=== PATIENT | male | born 1970 | race Caucasian/White ===

== ENCOUNTER 2020-04-30 11:28 | Emergency (ER) | payer OTHER ==
--- NOTE | 2020-04-30 12:00 | ERPHSYRPT ---
- History of Present Illness Time Seen by Provider: 04/30/20 11:40 Source: patient Exam Limitations: no limitations Physician History: Patient is a 49-year-old male presents to our ED with complaint of left shoulder pain. Patient states he was up on a ladder just prior to arrival and the ladder began to slip. Patient reached out to prevent the fall and subsequently injured his left shoulder. Pain described as an ache that is localized to the left posterior lateral aspect of his shoulder. Pain is constant. Pain worse with movement and palpation. Pain improved with rest. No other injuries reported. No associated weakness of the extremity. Pulses are palpable. Sensation intact. No neck pain. No head trauma. Patient did not fall. He was able to safely return back to the ground. Patient is otherwise healthy. Pain well controlled at this time. Patient declined pain medication. Patient otherwise generally healthy. Patient voices no other complaints at this time. Occurred: just prior to arrival Method of Injury: other (Patient having from age of his house supported by his left upper extremity.) Severity of Pain-Max: moderate Severity of Pain-Current: mild Extremities Pain Location: shoulder: left (Tenderness to palpation at left posterior lateral shoulder.) Modifying Factors: Improves With: movement Associated Symptoms: none, No chest discomfort, No chest pain, No dyspnea, No fever, No jaw pain, No nausea, No neck pain, No sweating, No short of breath, No vomiting Allergies/Adverse Reactions: No Known Drug Allergies Allergy (Unverified 04/30/20 11:48) Home Medications: Meloxicam 1 tab PO DAILY 04/30/20 [History] - Review of Systems Constitutional: No Symptoms, No Fever, No Chills Eyes: No Symptoms Ears, Nose, & Throat: No Symptoms Respiratory: No Symptoms, No Cough, No Dyspnea Cardiac: No Symptoms, No Chest Pain, No Edema, No Syncope Abdominal/Gastrointestinal: No Symptoms, No Abdominal Pain, No Nausea, No Vomiting, No Diarrhea Genitourinary Symptoms: No Symptoms, No Dysuria Musculoskeletal: Injury (Left shoulder tenderness to palpation. Overlying soft tissue intact.), No Back Pain, No Neck Pain Skin: No Symptoms, No Rash Neurological: No Symptoms, No Dizziness, No Focal Weakness, No Sensory Changes Psychological: No Symptoms Endocrine: No Symptoms All Other Systems: Reviewed and Negative - Nursing Vital Signs Nursing Vital Signs: Initial Vital Signs Temperature 98.4 F 04/30/20 11:33 Pulse Rate 80 04/30/20 11:33 Respiratory Rate 20 04/30/20 11:33 Blood Pressure 147/72 04/30/20 11:33 O2 Sat by Pulse Oximetry 95 04/30/20 11:33 Pain Scale Pain Intensity 8 - Physical Exam General Appearance: no apparent distress, alert Eyes, Ears, Nose, Throat Exam: moist mucous membranes Neck Exam: normal inspection, non-tender, supple Cardiovascular/Respiratory Exam: chest non-tender, normal breath sounds, regular rate/rhythm, no respiratory distress Abdominal Exam: non-tender, soft, No guarding Back Exam: normal inspection, No vertebral tenderness Shoulder Exam: normal inspection, No non-tender (Tenderness to palpation at left posterior lateral shoulder. No evidence of injury. Overlying soft tissue intact. No ecchymosis. No deformity. Range of motion limited by pain.) Elbow/Forearm Exam: normal inspection Wrist Exam: normal inspection Hand Exam: normal inspection, no evidence of injury Neuro/Tendon Exam: normal sensation, normal motor functions Mental Status Exam: alert, oriented x 3, cooperative Skin Exam: normal color, warm, dry SpO2 Interpretation: normal SpO2: 95 O2 Delivery: Room Air - Course Nursing assessment & vital signs reviewed: Yes - Radiology Exams Shoulder X-ray Interpretation: Teleradiologist Report (3 views left shoulder shows no bony no articular or soft tissue abnormalities.) Ordered Tests: Active Orders 24 hr Category Date Time Status Nursing [Miscellaneous Nursing Order] ROUTINE Care 04/30/20 12:01 Active SHOULDER Stat Exams 04/30/20 11:36 Completed - Progress Progress: improved Progress Note: 04/30/20 12:24 Patient reassessed. Symptoms improving shoulder sling. Patient declined pain medication. X-ray negative for acute pathology. Reassessment shows patient's left upper extremities neurovascular intact distally we will send patient to orthopedic clinic for further evaluation and treatment. Counseled pt/family regarding: diagnosis, need for follow-up, rad results - Departure Departure Disposition: Home Clinical Impression: Shoulder strain Condition: Stable Critical Care Time: No Referrals: JOSE M GREEN MD [NON-STAFF PHY W/O PRIVILEGES] - Additional Instructions: Discharge/Care Plan VANDANA JONES was seen on 04/30/20 in the Emergency Room. The patient was counseled regarding Diagnosis,Lab results, Imaging studies, need for follow up and when to return to the Emergency Room. Prescriptions given: Discharge Note I have spoken with the patient and/or caregivers. I have explained the patient' s condition, diagnosis and treatment plan based on the information available to me at this time. I have answered the patient's and/or caregiver's questions and addressed any concerns. The patient and/or caregivers have as good understanding of the patient's diagnosis, condition and treatment plan as can be expected at this point. The vital signs have been stable. The patient's condition is stable and appropriate for discharge from the emergency department. The patient will pursue further outpatient evaluation with the primary care physician or other designated or consulting physician as outlined in the discharge instructions. The patient and/or caregivers are agreeable to this plan of care and follow-up instructions have been explained in detail. The patient and/or caregivers have received these instruction. The patient/and or caregivers are aware that any significant change in condition or worsening of symptoms should prompt an immediate return to this or the closest emergency department or call 911. Outpatient Orders: Ortho Referral Time Frame: 1 Day, Location: ORTHO CLINIC
--- NOTE | 2020-04-30 12:22 | XRAY ---
Indication: Pain following fall. Comparison: None 3 view left shoulder obtained. No bony, articular, or soft tissue abnormalities.
[2020-04-30 12:31] VITALS: BP 127/73; PULSE 76; O2SAT 96
== END 2020-04-30 12:36 | disposition home or self-care (01) ==
LOC: ED 11:28
DX: S46.912A Strain of unspecified muscle, fascia and tendon at shoulder and upper arm level, left arm, initial encounter (principal); W01.10XA Fall on same level from slipping, tripping and stumbling with subsequent striking against unspecified object, initial encounter; Y93.89 Activity, other specified; Y92.89 Other specified places as the place of occurrence of the external cause
CPT/HCPCS: 73030; 99283

== ENCOUNTER 2020-07-22 20:32 | Observation (INO) | payer OTHER ==
[2020-07-22] MEDS ORDERED: Hydromorphone 1 mg/ml Ampule IV ONE (20:48)
[2020-07-22] MEDS ORDERED: Sodium Chloride 0.9% 1000 ML 1,000 ML IV STA (20:48)
[2020-07-22] MEDS ORDERED: Zofran 4 MG/2 ML VIAL IV ONE (20:48)
[2020-07-22] MEDS ORDERED: PROTONIX 40 MG IV IV ONE ×2 (20:48→21:09)
[2020-07-22] MEDS ORDERED: Sodium Chloride 0.9% 1000 ML 1,000 ML ONE (21:09)
[2020-07-22] MEDS ORDERED: Zofran 4 MG/2 ML VIAL ONE (21:09)
[2020-07-22 21:15] LABS: BASOPHIL % 0.2 % (0.0-0.4); Basophil (Absolute #) 0.01 (0-0.4); Eosinophil % 0.2 % (0.00-5.0); Eosinophil (Absolute #) 0.01 (0-0.5); Hematocrit 46.2 % (42-50); Hemoglobin 15.4 gm/dl (12.5-18.0); Lymphocytes % 29.8 % (24.0-44.0); Mean Cell Volume 88.8 fl (78-100); Mean Corpuscular Hemoglobin 29.6 pg (26-32); Mean Corpuscular Hgb Concent. 33.3 g/dl (32-36); Mean Platelet Volume 12.7 fl (7.5-11.0); Monocyte (Absolute #) 0.71 (0.0-1.3); Monocytes % 17.6 % (0.0-12.0); Neutrophil % 52.2 % (36.0-66.0); Platelet Count 108 K/mm3 (150-450); Red Cell Distribution Width 13.6 % (11.5-14.0)
[2020-07-22 21:22] LABS: ALKALINE PHOSPHATASE 83 U/L (38-126); AMYLASE 72 U/L (30-110); ANION GAP 9.5 MEQ/L (5-15); BLOOD UREA NITROGEN 16 mg/dL (9-20); CHLORIDE 104 mmol/L (98-107); Calcium 8.6 mg/dL (8.4-10.2); Carbon Dioxide 30 mmol/L (22-30); Creatinine 1 1.12 mg/dL (0.66-1.25); EST GLOMERULAR FILTRATION RATE > 60.0 ML/MIN; Glucose 109 mg/dL (74-106); LIPASE 80 U/L (23-300); Potassium 3.4 mmol/L (3.5-5.1); SGOT/AST 43 U/L (17-59); SGPT/ALT 31 U/L (0-50); SODIUM 140 mmol/L (137-145); Total Protein 7.1 g/dL (6.3-8.2)
[2020-07-22 21:35] LABS: Appearance SLIGHTLY CLOUDY (CLEAR); Bilirubin NEGATIVE (NEGATIVE); Blood NEGATIVE Ery/ul (0-5); Glucose NEGATIVE (NEGATIVE); Ketones NEGATIVE (NEGATIVE); Leukocyte Esterase NEGATIVE (NEGATIVE); Mucus MANY /HPF (NEGATIVE); Nitrite NEGATIVE (NEGATIVE); Protein,Urine Dip 100 (Negative); Specific Gravity 1.034 (1.005-1.025); Urobilinogen 2 mg/dL (0-1)
[2020-07-22] MEDS ORDERED: Hydromorphone 1 mg/ml Ampule ONE (22:03)
--- NOTE | 2020-07-22 22:52 | ERPHSYRPT ---
- History of Present Illness Time Seen by Provider: 07/22/20 20:45 Historian: patient Exam Limitations: no limitations Patient Subjective Stated Complaint: pt states he has been nauseated and having lt side abd pain radiated to chest and back for last 4-5 days. states he has been nauseated but no vomiting. unable to eat or drink d/t nausea. reports tenderness in lt upper quad starting today. Triage Nursing Assessment: pt alert and oriented, answers questions approp. pt ambulatory with steady gait noted. respirations nonlabored with lungs cta. respirations nonlabored with lungs cta. abd soft, bowel sounds present. pt reports tenderness with light palpation to lt upper quad. Physician History: Patient is a 49-year-old male who is been sick for approximately 5 days. His pain is in the epigastric and left upper quadrant radiates into the chest is worse with a deep breath is associated with nausea but he has not had vomiting. He cannot eat or drink. His pain is been fairly consistent for a few days getting worse. He has no cardiac risk factors. Timing/Duration: day(s) (5) Activities at Onset: none Quality: cramping, stabbing, throbbing Abdominal Pain Onset Location: LUQ, epigastric Pain Radiation: chest Severity of Pain-Max: moderate Severity of Pain-Current: moderate Modifying Factors: Improves With: nothing Associated Symptoms: chest pain, headache, nausea, shortness of breath Previous symptoms: no prior history Allergies/Adverse Reactions: No Known Drug Allergies Allergy (Verified 07/22/20 20:58) Home Medications: Meloxicam 1 tab PO DAILY 04/30/20 [History] Hx Tetanus, Diphtheria Vaccination/Date Given: Yes Hx Influenza Vaccination/Date Given: No Hx Pneumococcal Vaccination/Date Given: No Immunizations Up to Date: Yes Travel Risk - International Travel Have you traveled outside of the country in past 3 weeks: No - Coronavirus Screening Are you exhibiting any of the following symptoms?: No Close contact with a COVID-19 positive Pt in past 14-21 Days: No - Review of Systems Constitutional: No Fever, No Chills Eyes: No Symptoms Ears, Nose, & Throat: No Symptoms Respiratory: Dyspnea, No Cough Cardiac: Chest Pain, No Edema, No Syncope Abdominal/Gastrointestinal: Abdominal Pain, Nausea, No Vomiting, No Diarrhea Genitourinary Symptoms: No Dysuria Musculoskeletal: No Back Pain, No Neck Pain Skin: No Rash Neurological: No Dizziness, No Focal Weakness, No Sensory Changes Psychological: No Symptoms Endocrine: No Symptoms All Other Systems: Reviewed and Negative - Past Medical History Pertinent Past Medical History: No Neurological History: No Pertinent History ENT History: No Pertinent History Cardiac History: No Pertinent History Respiratory History: No Pertinent History Endocrine Medical History: No Pertinent History Musculoskeletal History: Arthritis GI Medical History: No Pertinent History History: No Pertinent History Psycho-Social History: No Pertinent History Male Reproductive Disorders: No Pertinent History - Past Surgical History Past Surgical History: Yes Neuro Surgical History: No Pertinent History Cardiac: No Pertinent History Respiratory: No Pertinent History Gastrointestinal: No Pertinent History Genitourinary: No Pertinent History Musculoskeletal: Orthopedic Surgery Male Surgical History: No Pertinent History Other Surgical History: Right knee meniscus repair - Social History Smoking Status: Never smoker Exposure to second hand smoke: No Drug Use: none Patient Lives Alone: No - Nursing Vital Signs Nursing Vital Signs: Initial Vital Signs Pulse Rate 95 H 07/22/20 20:44 Respiratory Rate 18 07/22/20 20:44 Blood Pressure 135/83 07/22/20 20:44 O2 Sat by Pulse Oximetry 97 07/22/20 20:44 Pain Scale Pain Intensity 4 - Physical Exam General Appearance: mild distress, alert Eye Exam: PERRL/EOMI, eyes nml inspection Ears, Nose, Throat Exam: normal ENT inspection, pharynx normal, moist mucous membranes Neck Exam: normal inspection, non-tender, supple, full range of motion Respiratory Exam: normal breath sounds, lungs clear, No respiratory distress Cardiovascular Exam: regular rate/rhythm, normal heart sounds Gastrointestinal/Abdomen Exam: soft, tenderness (Gastrium and left upper quadrant), No mass Back Exam: normal inspection, normal range of motion, No CVA tenderness, No vertebral tenderness Extremity Exam: normal inspection, normal range of motion, pelvis stable Neurologic Exam: alert, oriented x 3, cooperative, normal mood/affect, nml cerebellar function, sensation nml, No motor deficits Skin Exam: normal color, warm, dry SpO2: 94 - Course Nursing assessment & vital signs reviewed: Yes EKG Interpreted by Me: RATE (89), Sinus Rhythm, NORMAL AXIS, NORMAL INTERVALS, NORMAL QRS, NORMAL ST-T - Radiology Exams Chest X-ray Interpretation: Interpreted by me, Other (Chest x-ray is negative) - CT Exams Abdomen/Pelvis CT Interpretation: Other (CT scan shows multifocal patchy infiltrates in both lo wer lung ward) Ordered Tests: Active Orders 24 hr Category Date Time Status EKG-ER Only STAT Care 07/22/20 20:48 Active IV Insertion STAT Care 07/22/20 20:48 Active ABDOMEN AND PELVIS W CONTRAST [CT] Stat Exams 07/22/20 20:49 Taken CHEST 1 VIEW (PORTABLE) Stat Exams 07/22/20 20:49 Taken AMYLASE Stat Lab 07/22/20 20:55 Completed CBC W DIFF Stat Lab 07/22/20 20:55 Completed CMP Stat Lab 07/22/20 20:55 Completed LIPASE Stat Lab 07/22/20 20:55 Completed Lactic Acid Stat Lab 07/22/20 20:48 Completed TROPONIN Q3H Lab 07/22/20 20:55 Completed UA W/RFX UR CULTURE Stat Lab 07/22/20 21:10 Completed Medication Summary Discontinued Medications Generic Name Dose Route Start Last Admin Trade Name Freq PRN Reason Stop Dose Admin Hydromorphone HCl 1 mg 07/22/20 20:48 07/22/20 22:05 Hydromorphone 1 Mg/Ml Ampule IV 07/22/20 20:49 1 mg STAT ONE Administration Hydromorphone HCl Confirm 07/22/20 22:03 Hydromorphone 1 Mg/Ml Ampule Administered 07/22/20 22:04 Dose 1 mg .ROUTE .STK-MED ONE Sodium Chloride 1,000 mls @ 999 mls/hr 07/22/20 20:48 07/22/20 23:52 Sodium Chloride 0.9% 1000 Ml IV 07/22/20 21:48 Infused .Q1H1M STA Infusion Sodium Chloride Confirm 07/22/20 21:09 Sodium Chloride 0.9% 1000 Ml Administered 07/22/20 21:10 Dose 1,000 mls @ ud .ROUTE .STK-MED ONE Ondansetron HCl 4 mg 07/22/20 20:48 07/22/20 21:14 Zofran 4 Mg/2 Ml Vial IV 07/22/20 20:49 4 mg STAT ONE Administration Ondansetron HCl Confirm 07/22/20 21:09 Zofran 4 Mg/2 Ml Vial Administered 07/22/20 21:10 Dose 4 mg .ROUTE .STK-MED ONE Pantoprazole Sodium 40 mg 07/22/20 20:48 07/22/20 21:14 Protonix 40 Mg Iv IV 07/22/20 20:49 40 mg STAT ONE Administration Pantoprazole Sodium Confirm 07/22/20 21:09 Protonix 40 Mg Iv Administered 07/22/20 21:10 Dose 40 mg IV .STK-MED ONE Lab/Rad Data: Laboratory Result Diagrams 07/22/20 20:55 07/22/20 20:55 Laboratory Results 07/22/20 07/22/20 07/22/20 Range/Units 23:00 21:10 20:55 WBC (4.0-10.5) K/mm3 RBC (4.1-5.6) M/mm3 Hgb (12.5-18.0) gm/dl Hct (42-50) % MCV (78-100) fl MCH (26-32) pg MCHC (32-36) g/dl RDW (11.5-14.0) % Plt Count (150-450) K/mm3 MPV (7.5-11.0) fl Gran % (36.0-66.0) % Eos # (Auto) (0-0.5) Absolute Lymphs (auto) (1.0-4.6) Absolute Monos (auto) (0.0-1.3) Lymphocytes % (24.0-44.0) % Monocytes % (0.0-12.0) % Eosinophils % (0.00-5.0) % Basophils % (0.0-0.4) % Absolute Granulocytes (1.4-6.9) Basophils # (0-0.4) Sodium (137-145) mmol/L Potassium (3.5-5.1) mmol/L Chloride (98-107) mmol/L Carbon Dioxide (22-30) mmol/L Anion Gap (5-15) MEQ/L BUN (9-20) mg/dL Creatinine (0.66-1.25) mg/dL Estimated GFR ML/MIN Glucose (74-106) mg/dL Lactic Acid (0.4-2.0) Calcium (8.4-10.2) mg/dL Total Bilirubin (0.2-1.3) mg/dL AST (17-59) U/L ALT (0-50) U/L Alkaline Phosphatase (38-126) U/L Troponin I < 0.012 (0.000-0.034) ng/mL Serum Total Protein (6.3-8.2) g/dL Albumin (3.5-5.0) g/dL Amylase (30-110) U/L Lipase (23-300) U/L Urine Color LIBIA (YELLOW) Urine Appearance SLIGHTLY CLOUDY (CLEAR) Urine pH 5.0 (5-6) Ur Specific [place] 1.034 (1.005-1.025) Urine Protein 100 (Negative) Urine Ketones NEGATIVE (NEGATIVE) Urine Blood NEGATIVE (0-5) Mike/ul Urine Nitrite NEGATIVE (NEGATIVE) Urine Bilirubin NEGATIVE (NEGATIVE) Urine Urobilinogen 2 (0-1) mg/dL Ur Leukocyte Esterase NEGATIVE (NEGATIVE) Urine WBC (Auto) NONE (0-5) /HPF Urine RBC (Auto) NONE (0-2) /HPF U Epithel Cells (Auto) NONE (FEW) /HPF Urine Bacteria (Auto) NONE (NEGATIVE) /HPF Urine Mucus (Auto) MANY (NEGATIVE) /HPF Urine Culture Reflexed NO (NO) Urine Glucose NEGATIVE (NEGATIVE) mg/dL SARS-CoV-2 (PCR) POSITIVE A (NEGATIVE) 07/22/20 07/22/20 07/22/20 Range/Units 20:55 20:55 20:48 WBC 4.0 (4.0-10.5) K/mm3 RBC 5.20 (4.1-5.6) M/mm3 Hgb 15.4 (12.5-18.0) gm/dl Hct 46.2 (42-50) % MCV 88.8 (78-100) fl MCH 29.6 (26-32) pg MCHC 33.3 (32-36) g/dl RDW 13.6 (11.5-14.0) % Plt Count 108 L (150-450) K/mm3 MPV 12.7 H (7.5-11.0) fl Gran % 52.2 (36.0-66.0) % Eos # (Auto) 0.01 (0-0.5) Absolute Lymphs (auto) 1.20 (1.0-4.6) Absolute Monos (auto) 0.71 (0.0-1.3) Lymphocytes % 29.8 (24.0-44.0) % Monocytes % 17.6 H (0.0-12.0) % Eosinophils % 0.2 (0.00-5.0) % Basophils % 0.2 (0.0-0.4) % Absolute Granulocytes 2.10 (1.4-6.9) Basophils # 0.01 (0-0.4) Sodium 140 (137-145) mmol/L Potassium 3.4 L (3.5-5.1) mmol/L Chloride 104 (98-107) mmol/L Carbon Dioxide 30 (22-30) mmol/L Anion Gap 9.5 (5-15) MEQ/L BUN 16 (9-20) mg/dL Creatinine 1.12 (0.66-1.25) mg/dL Estimated GFR > 60.0 ML/MIN Glucose 109 H (74-106) mg/dL Lactic Acid 1.2 (0.4-2.0) Calcium 8.6 (8.4-10.2) mg/dL Total Bilirubin 0.50 (0.2-1.3) mg/dL AST 43 (17-59) U/L ALT 31 (0-50) U/L Alkaline Phosphatase 83 (38-126) U/L Troponin I (0.000-0.034) ng/mL Serum Total Protein 7.1 (6.3-8.2) g/dL Albumin 4.0 (3.5-5.0) g/dL Amylase 72 (30-110) U/L Lipase 80 (23-300) U/L Urine Color (YELLOW) Urine Appearance (CLEAR) Urine pH (5-6) Ur Specific [place] (1.005-1.025) Urine Protein (Negative) Urine Ketones (NEGATIVE) Urine Blood (0-5) Mike/ul Urine Nitrite (NEGATIVE) Urine Bilirubin (NEGATIVE) Urine Urobilinogen (0-1) mg/dL Ur Leukocyte Esterase (NEGATIVE) Urine WBC (Auto) (0-5) /HPF Urine RBC (Auto) (0-2) /HPF U Epithel Cells (Auto) (FEW) /HPF Urine Bacteria (Auto) (NEGATIVE) /HPF Urine Mucus (Auto) (NEGATIVE) /HPF Urine Culture Reflexed (NO) Urine Glucose (NEGATIVE) mg/dL SARS-CoV-2 (PCR) (NEGATIVE) - Progress Progress: unchanged Discussed with : Other (Marvin) Will see patient in: hospital (full admit) - Departure Departure Disposition: In-patient Admission Clinical Impression: COVID-19 Condition: Fair Critical Care Time: No Referrals: HOSPITAL,'S [Primary Care Provider] -
[2020-07-23] MEDS ORDERED: Sodium Chloride 0.9% 1000 ML 1,000 ML IV SCH (00:15)
[2020-07-23] MEDS: TYLENOL 325 MG PO PRN ×2 (02:31→08:37)
[2020-07-23 05:39] LABS: Absolute Neutrophil Ct (ANC) 2.01 (1.4-6.9); BASOPHIL % 0.2 % (0.0-0.4); Basophil (Absolute #) 0.01 (0-0.4); Eosinophil % 0.2 % (0.00-5.0); Eosinophil (Absolute #) 0.01 (0-0.5); Hematocrit 41.4 % (42-50); Hemoglobin 13.7 gm/dl (12.5-18.0); Lymphocyte (Absolute #) 1.34 (1.0-4.6); Lymphocytes % 32.1 % (24.0-44.0); Mean Cell Volume 90.8 fl (78-100); Mean Corpuscular Hgb Concent. 33.1 g/dl (32-36); Monocytes % 19.2 % (0.0-12.0); Neutrophil % 48.3 % (36.0-66.0); Platelet Count 93 K/mm3 (150-450); Red Blood Count 4.56 M/mm3 (4.1-5.6); Red Cell Distribution Width 13.7 % (11.5-14.0); White Blood Count 4.2 K/mm3 (4.0-10.5)
[2020-07-23 06:02] LABS: ALBUMIN 3.4 g/dL (3.5-5.0); ALKALINE PHOSPHATASE 69 U/L (38-126); ANION GAP 7.6 MEQ/L (5-15); BLOOD UREA NITROGEN 14 mg/dL (9-20); CHLORIDE 106 mmol/L (98-107); Calcium 7.7 mg/dL (8.4-10.2); Carbon Dioxide 28 mmol/L (22-30); Creatinine 1 0.92 mg/dL (0.66-1.25); EST GLOMERULAR FILTRATION RATE > 60.0 ML/MIN; Glucose 102 mg/dL (74-106); NT PRO BNP 29.8 pg/mL (0-900); Potassium 3.7 mmol/L (3.5-5.1); SGOT/AST 39 U/L (17-59); SGPT/ALT 26 U/L (0-50); SODIUM 138 mmol/L (137-145); Total Protein 6.1 g/dL (6.3-8.2)
[2020-07-23 07:44] VITALS: BP 124/74; PULSE 73; O2SAT 95
--- NOTE | 2020-07-23 08:48 | XRAY ---
Indication: Upper abdomen pain and nausea. Multiple contiguous axial images obtained through the abdomen and pelvis using 80 cc Isovue 370 contrast only. Comparison: None Lung bases demonstrates small patchy bilateral peripheral airspace opacities. Also mild bibasilar subsegmental atelectasis/scarring and 7 mm subpleural left posterior gutter noncalcified nodule. No effusion. Tiny right perihilar and right lower lobe calcified granulomas. Heart is not enlarged. Noncontrasted stomach and bowel loops appear nonobstructed. Normal appendix. Mild scattered descending and sigmoid diverticulosis. No free fluid/air. Nonobstructing punctate left renal calculus. Remaining liver, gallbladder, pancreas, spleen, adrenal glands, kidneys, ureters, bladder, and aorta appear unremarkable. No pathologic retroperitoneal lymphadenopathy. Osseous structures intact with mild degenerative changes throughout the thoracolumbar spine. No ventral or inguinal hernias. Impression: 1. Bilateral lower lung patchy airspace disease without effusion. 2. 7 mm left lower lobe noncalcified nodule probably granulomatous as there is evidence for old granulomatous disease elsewhere. CT chest recommended to establish baseline with follow-up per Fleischner guidelines. 3. Nonobstructing right renal micro-calculus and colonic diverticulosis. Comment: Preliminary interpretation was made by [facility]. No critical discrepancy.
--- NOTE | 2020-07-23 08:50 | XRAY ---
Indication: Chest pain. Comparison: None Portable apical lordotic chest demonstrates left mid to lower lung airspace disease without consolidation/large effusion. Remaining heart, lungs, and bony thorax unremarkable.
--- NOTE | 2020-07-23 13:52 | SSS ---
DISCHARGE DIAGNOSES: 1) COVID. 2) GASTRITIS. 3) COVID PNEUMONIA. CHIEF COMPLAINT: Abdominal pain. HISTORY OF PRESENT ILLNESS: The patient is a 49 year old white male who has been doing well until yesterday when he started having diffuse abdominal pain while eating. He has had no fever, chills or cough. He has not been in contact with anybody with COVID. The back pain has been going now for day five. No vomiting. Not able to eat or drink though. He works at [employer] with his brother who is working with him. He has some kids at home. His [id number] I believe has been treated for cancer. PAST SURGICAL HISTORY: Orthopedic history with torn right meniscus. REVIEW OF SYSTEMS: HEENT: No problems hearing or seeing. He does not wear glasses. CHEST: No shortness of breath. No cough. CVS: Sharp stabbing pain in his chest. ABDOMEN: Sharp stabbing pain epigastric left upper quadrant. One diarrheal movement. Pain does not change no matter whether he moves or takes deep breath. : None. PSYCH: None. SOCIAL HISTORY: Nonsmoker. 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 No drug use. He lives with his and two children. PHYSICAL EXAMINATION: The patient is a large, younger than normal 49 year old white male who is not obese. Pulse 95, blood pressure 135/83. O2 saturation on oxygen 97%. HEENT: Pupils equal and reactive to light. NECK: Supple without adenopathy. CHEST: Clear. CVS: No murmurs or gallops. ABDOMEN: Kind of tender at the left upper quadrant. IMPRESSION: The patient has positive COVID test. Electrolytes, CBC all okay. He was a little bit dehydrated and having pain. He was treated with some IV fluids overnight and some Zofran and he feels better this morning. He is drinking fluids without problem. At this point he will be discharged home with some Zofran 2 mg q4h PRN and some Decadron 4 mg twice a day. He is to be in isolation for 14 days. He is to call if he runs high fever or gets short of breath, has intractable vomiting or diarrhea. I noticed D-dimer was 784 just minimally elevated which is normal with this disease. His chest x-ray did show bilateral lower lung patchy infiltrates without effusion. I feel the Decadron will help take care of that. He is really not having any cough or shortness of breath. The patient is stable on discharge to follow up with isolation for total of 14 days. PROGNOSIS: Good.
== END 2020-07-23 10:22 | disposition home or self-care (01) ==
LOC: ED 20:32 → INTOOBSV 07-23 01:45 → MED SURG 07-23 01:45
PROVIDERS: ADMIT Family Medicine; ATTEND Family Medicine
DX: U07.1 COVID-19 (principal); J12.89 Other viral pneumonia; E86.0 Dehydration; K29.70 Gastritis, unspecified, without bleeding
CPT/HCPCS: 36000; 36415; 71045; 74177; 80053; 81001; 82150; 83605; 83690; 83880; 84484; 85025; 85379; 93005; 94762; 96360; 96361; 96374; 96375; U0003; 99284; G0378; J1170; J2405; A9270-GY

== ENCOUNTER 2023-02-09 15:46 | Emergency (ER) | payer OTHER ==
--- NOTE | 2023-02-09 16:35 | XRAY ---
Indication: Periumbilical pain/bulge. Multiple contiguous axial images obtained through the abdomen and pelvis without contrast. Comparison: July 22, 2020 Lung bases again demonstrates mild bibasilar dependent atelectasis and stable 7 mm benign subpleural left posterior gutter noncalcified nodule. Heart not enlarged. Again no ventral or inguinal hernias. Noncontrasted stomach and bowel loops remain nonobstructed with normal appendix. Again mild descending and sigmoid diverticulosis. Query mild/early diverticulitis junction descending and sigmoid colon without free fluid/air. Stable nonobstructing left and new nonobstructing right renal punctate calculus. Remaining liver, gallbladder, pancreas, spleen, adrenal glands, kidneys, ureters, bladder, and aorta are unremarkable for noncontrast exam. Osseous structures intact again with mild degenerative changes throughout the thoracal lumbar spine. Impression: 1. Again left hemicolon diverticulosis. Query mild/early diverticulitis junction of descending and sigmoid colon. 2. Incidental nonobstructing bilateral renal punctate calculus and stable subcentimeter benign left lower lobe noncalcified nodule.
[2023-02-09 16:56] VITALS: O2SAT 97
[2023-02-09] MEDS ORDERED: PIPERACILLIN/TAZOBACTAM 3.375 GM in Sodium Chloride 100ML MINI-BAG PLUS 100 ML IV ONE (17:00)
[2023-02-09] MEDS ORDERED: PIPERACILLIN/TAZOBACTAM IV ONE (17:01)
[2023-02-09] MEDS ORDERED: Sodium Chloride 100ML MINI-BAG PLUS 100 ML IV ONE (17:02)
--- NOTE | 2023-02-09 17:18 | ERPHSYRPT ---
- History of Present Illness Time Seen by Provider: 02/09/23 16:00 Historian: patient Exam Limitations: no limitations Patient Subjective Stated Complaint: pt states I have a hernia that is causing burning Triage Nursing Assessment: pt ambulated into the er; pt is axo x4; c/o abd pain; skin PDW; no respiratory distress present; denies N/V/D; vital wnl Physician History: Patient is a 52-year-old male presents to our ED for evaluation of abdominal pain. Patient complains of a burning sensation in his abdomen. Patient states he has a history of a hernia. Patient concerned that the pain may be caused by the hernia repair no trauma. No fever. No nausea or vomiting. No diarrhea. No rash. No constipation. Symptoms are mild to moderate in intensity. Patient declined pain medication. Patient voices no other complaints or concerns at this time. Portions of this note were created with voice recognition technology. There may be grammatical, spelling, punctuation or sound alike errors Timing/Duration: today Activities at Onset: none Quality: aching Abdominal Pain Onset Location: other (Anterior abdomen) Pain Radiation: no radiation Severity of Pain-Max: moderate Severity of Pain-Current: mild Modifying Factors: Improves With: nothing Associated Symptoms: denies symptoms Previous symptoms: same symptoms as today Allergies/Adverse Reactions: No Known Drug Allergies Allergy (Verified 02/09/23 15:54) Hx Tetanus, Diphtheria Vaccination/Date Given: Yes Hx Influenza Vaccination/Date Given: Yes Hx Pneumococcal Vaccination/Date Given: No Travel Risk - International Travel Have you traveled outside of the country in past 3 weeks: No - Coronavirus Screening Are you exhibiting any of the following symptoms?: No Close contact with a COVID-19 positive Pt in past 14-21 Days: No - Vaccine Status Have you recieved a Covid-19 vaccination: No - Review of Systems Constitutional: No Symptoms, No Fever, No Chills Eyes: No Symptoms Ears, Nose, & Throat: No Symptoms Respiratory: No Symptoms, No Cough, No Dyspnea Cardiac: No Symptoms, No Chest Pain, No Edema, No Syncope Abdominal/Gastrointestinal: No Symptoms, No Abdominal Pain, No Nausea, No Vomiting, No Diarrhea Genitourinary Symptoms: No Symptoms, No Dysuria Musculoskeletal: No Symptoms, No Back Pain, No Neck Pain Skin: No Symptoms, No Rash Neurological: No Symptoms, No Dizziness, No Focal Weakness, No Sensory Changes Psychological: No Symptoms Endocrine: No Symptoms Hematologic/Lymphatic: No Symptoms Immunological/Allergic: No Symptoms All Other Systems: Reviewed and Negative - Past Medical History Pertinent Past Medical History: No Neurological History: No Pertinent History ENT History: No Pertinent History Cardiac History: No Pertinent History Respiratory History: No Pertinent History Endocrine Medical History: No Pertinent History Musculoskeletal History: Arthritis GI Medical History: No Pertinent History History: No Pertinent History Psycho-Social History: No Pertinent History Male Reproductive Disorders: No Pertinent History - Past Surgical History Past Surgical History: Yes Neuro Surgical History: No Pertinent History Cardiac: No Pertinent History Respiratory: No Pertinent History Gastrointestinal: No Pertinent History Genitourinary: No Pertinent History Musculoskeletal: Orthopedic Surgery Male Surgical History: No Pertinent History Other Surgical History: Right knee meniscus repair and left knee - Social History Smoking Status: Never smoker Exposure to second hand smoke: No Drug Use: none Patient Lives Alone: No - Nursing Vital Signs Nursing Vital Signs: Initial Vital Signs Temperature 97.4 F 02/09/23 15:55 Pulse Rate 81 02/09/23 15:55 Respiratory Rate 18 02/09/23 15:55 Blood Pressure 148/78 02/09/23 15:55 O2 Sat by Pulse Oximetry 99 02/09/23 15:55 Pain Scale Pain Intensity 2 - Physical Exam General Appearance: no apparent distress, alert Eye Exam: PERRL/EOMI, eyes nml inspection Ears, Nose, Throat Exam: normal ENT inspection, pharynx normal, moist mucous membranes Neck Exam: normal inspection, non-tender, supple, full range of motion Respiratory Exam: normal breath sounds, lungs clear, airway intact, No respiratory distress Cardiovascular Exam: regular rate/rhythm, normal heart sounds Gastrointestinal/Abdomen Exam: soft, No tenderness, No mass Back Exam: normal inspection, normal range of motion, No CVA tenderness, No vertebral tenderness Extremity Exam: normal inspection, normal range of motion, pelvis stable Neurologic Exam: alert, oriented x 3, cooperative, normal mood/affect, nml cerebellar function, sensation nml, No motor deficits Skin Exam: normal color, warm, dry Lymphatic Exam: No adenopathy SpO2 Interpretation: normal SpO2: 97 O2 Delivery: Room Air - Course Nursing assessment & vital signs reviewed: Yes - CT Exams Abdomen/Pelvis CT Interpretation: Tele-radiologist Report (Diverticulosis, diverticulitis, nephrolithiasis, lung nodule) Ordered Tests: Active Orders 24 hr Category Date Time Status ABDOMEN AND PELVIS W/0 CONTRAS [CT] Stat Exams 02/09/23 16:05 Completed Medication Summary Generic Name Dose Route Start Last Admin Trade Name Freq PRN Reason Stop Dose Admin Piperacillin Sod/Tazobactam 100 mls @ 200 mls/hr 02/09/23 17:00 02/09/23 17:03 Sod 3.375 gm/ Sodium Chloride IV 02/09/23 17:29 200 mls/hr STAT ONE Administration Discontinued Medications Generic Name Dose Route Start Last Admin Trade Name Freq PRN Reason Stop Dose Admin Sodium Chloride Confirm 02/09/23 17:02 Sodium Chloride 100ml Mini-Bag Plus Administered 02/09/23 17:03 Dose 100 mls @ ud IV .STK-MED ONE Piperacillin Sod/Tazobactam Sod Confirm 02/09/23 17:01 Piperacillin/Tazobactam Sodium 3.375 Gm Vial Administered 02/09/23 17:02 Dose 3.375 gm IV .STK-MED ONE - Progress Progress: improved Progress Note: Patient is a 52-year-old male presents to our ED with abdominal pain. CT scan reveals early mild diverticulitis. Patient declined pain medication. Complexity of problem addressed is low. Problem is acute uncomplicated. No critical care time. Complexity of data reviewed and analyzed was low. Test ordered. Test reviewed. Patient served as independent historian. No outside documents reviewed. Risk of complication and or morbidity/mortality of patient management is moderate. Patient received IV antibiotics. A prescription for Augmentin was forwarded to patient's pharmacy. She will be discharged home. He agrees to follow-up with primary care doctor within 48 hours for reevaluation. Time spent on discharge is approximately 10 minutes. Vital stable. Portions of this note were created with voice recognition technology. There may be grammatical, spelling, punctuation or sound alike errors 02/09/23 17:32 Counseled pt/family regarding: diagnosis, need for follow-up, rad results - Departure Departure Disposition: Home Clinical Impression: Diverticulitis, Nephrolithiasis, Lung nodule Condition: Stable Critical Care Time: No Referrals: DOCTOR,NO FAMILY [Primary Care Provider] - Follow up/PCP as directed RAFAEL CARDONA [ACTIVE STAFF] - Follow up/PCP as directed Instructions: High Fiber Diet, Diverticulitis Additional Instructions: Discharge/Care Plan VANDANA JONES was seen on 02/09/23 in the Emergency Room. The patient was counseled regarding Diagnosis,Lab results, Imaging studies, need for follow up and when to return to the Emergency Room. Prescriptions given: Discharge Note I have spoken with the patient and/or caregivers. I have explained the patient's condition, diagnosis and treatment plan based on the information available to me at this time. I have answered the patient's and/or caregiver's questions and addressed any concerns. The patient and/or caregivers have as good understanding of the patient's diagnosis, condition and treatment plan as can be expected at this point. The vital signs have been stable. The patient's condition is stable and appropriate for discharge from the emergency department. The patient will pursue further outpatient evaluation with the primary care physician or other designated or consulting physician as outlined in the discharge instructions. The patient and/or caregivers are agreeable to this plan of care and follow-up instructions have been explained in detail. The patient and/or caregivers have received these instruction. The patient/and or caregivers are aware that any significant change in condition or worsening of symptoms should prompt an immediate return to this or the closest emergency department or call 911. Prescriptions: Amox Tr/Potass Clav. 875 mg [Augmentin 875-125 Tablet] 875 mg PO BID 7 Days #14 tablet
[2023-02-09 17:20] VITALS: BP 125/74; PULSE 55
== END 2023-02-09 17:47 | disposition home or self-care (01) ==
LOC: ED 15:46
DX: K57.92 Diverticulitis of intestine, part unspecified, without perforation or abscess without bleeding (principal); N20.0 Calculus of kidney; R91.1 Solitary pulmonary nodule; R10.9 Unspecified abdominal pain; Z28.310 Unvaccinated for COVID-19
CPT/HCPCS: 74176; 96374; 99283

== ENCOUNTER 2023-02-19 15:38 | Emergency (ER) | payer OTHER ==
--- NOTE | 2023-02-19 15:47 | ERPHSYRPT ---
- History of Present Illness Time Seen by Provider: 02/19/23 15:47 Source: patient, sign language interpreter Exam Limitations: no limitations Physician History: This is a 52-year-old white male patient who presents to the emergency department today with right flank pain that radiates down to his right lower abdomen. Patient receives his primary care through the [facility] system. Patient was seen in our emergency department approximately 9 days ago because of abdominal pain and he was diagnosed with nephrolithiasis and there was an incidental finding of diverticulitis. He has been on Augmentin and he still has some medication left to take. Patient states that he has right flank pain and pain that radiates into the right lower abdomen has worsened this morning. Patient has not fallen or had any trauma to his back. He does have a history of chronic low back pain. Patient denies fever. Patient denies chills. He has not had a cough. He denies chest pain. He denies nausea vomiting and diarrhea Timing/Duration: week(s), worse (This morning) Quality: aching, throbbing Back Pain Location: paraspinous muscles (Right flank area) Severity of Pain-Max: moderate Severity of Pain-Current: moderate Associated Symptoms: other (Right flank pain with radiation to the right lower abdomen), No urinary incontinence, No loss of bowel control, No nausea, No vomiting, No problems urinating, No light-headedness, No dizziness, No numbness in legs/feet Previous symptoms: same symptoms as today, recently seen, recently treated Allergies/Adverse Reactions: No Known Drug Allergies Allergy (Verified 02/19/23 15:53) Hx Tetanus, Diphtheria Vaccination/Date Given: Yes Hx Influenza Vaccination/Date Given: Yes Hx Pneumococcal Vaccination/Date Given: No Travel Risk - International Travel Have you traveled outside of the country in past 3 weeks: No - Coronavirus Screening Are you exhibiting any of the following symptoms?: No Close contact with a COVID-19 positive Pt in past 14-21 Days: No - Vaccine Status Have you recieved a Covid-19 vaccination: No - Review of Systems Constitutional: No Symptoms Eyes: No Symptoms Ears, Nose, & Throat: No Symptoms Respiratory: No Symptoms Cardiac: No Symptoms Abdominal/Gastrointestinal: Abdominal Pain (Right lower abdominal pain) Genitourinary Symptoms: Flank Pain (Right) Musculoskeletal: No Symptoms Skin: No Symptoms Neurological: No Symptoms Psychological: No Symptoms Endocrine: No Symptoms Hematologic/Lymphatic: No Symptoms Immunological/Allergic: No Symptoms All Other Systems: Reviewed and Negative - Past Medical History Pertinent Past Medical History: No Neurological History: No Pertinent History ENT History: No Pertinent History Cardiac History: No Pertinent History Respiratory History: No Pertinent History Endocrine Medical History: No Pertinent History Musculoskeletal History: Arthritis GI Medical History: No Pertinent History History: No Pertinent History Psycho-Social History: No Pertinent History Male Reproductive Disorders: No Pertinent History - Past Surgical History Past Surgical History: Yes Neuro Surgical History: No Pertinent History Cardiac: No Pertinent History Respiratory: No Pertinent History Gastrointestinal: No Pertinent History Genitourinary: No Pertinent History Musculoskeletal: Orthopedic Surgery Male Surgical History: No Pertinent History Other Surgical History: Right knee meniscus repair and left knee - Social History Smoking Status: Never smoker Exposure to second hand smoke: No Drug Use: none Patient Lives Alone: No - Nursing Vital Signs Nursing Vital Signs: Initial Vital Signs Temperature 98.5 F 02/19/23 15:54 Pulse Rate 84 02/19/23 15:54 Respiratory Rate 18 02/19/23 15:54 Blood Pressure 134/74 02/19/23 15:54 O2 Sat by Pulse Oximetry 96 02/19/23 15:54 Pain Scale Pain Intensity 4 - Physical Exam General Appearance: no apparent distress, alert, anxiety Eye Exam: PERRL/EOMI, eyes nml inspection Ears, Nose, Throat Exam: normal ENT inspection, moist mucous membranes Neck Exam: normal inspection, non-tender, supple, full range of motion Respiratory Exam: normal breath sounds, lungs clear, No chest tenderness, No respiratory distress, No airway intact Cardiovascular Exam: regular rate/rhythm, normal heart sounds, normal peripheral pulses Gastrointestinal Exam: soft, normal bowel sounds, tenderness (Mild right lower abdominal tenderness to palpation), guarding (Right lower abdomen to palpation), No rebound Rectal Exam: not done Back Exam: normal inspection, normal range of motion, CVA tenderness (Right), No vertebral tenderness Extremity Exam: normal inspection, normal range of motion, pelvis stable Neurologic Exam: alert, oriented x 3, cooperative, senior nurse manager II-XII nml as tested, normal mood/affect, nml cerebellar function, nml station & gait, sensation nml Skin Exam: normal color, warm, dry Lymphatic Exam: No adenopathy SpO2 Interpretation: normal O2 Delivery: Room Air - Course Nursing assessment & vital signs reviewed: Yes Ordered Tests: Active Orders 24 hr Category Date Time Status ABDOMEN AND PELVIS W/0 CONTRAS [CT] Stat Exams 02/19/23 16:03 Completed AMYLASE Stat Lab 02/19/23 16:05 Completed CBC W DIFF Stat Lab 02/19/23 16:05 Completed CMP Stat Lab 02/19/23 16:05 Completed LIPASE Stat Lab 02/19/23 16:05 Completed UA W/RFX UR CULTURE Stat Lab 02/19/23 16:05 Completed Medication Summary Discontinued Medications Generic Name Dose Route Start Last Admin Trade Name Freq PRN Reason Stop Dose Admin Hydromorphone HCl 1 mg 02/19/23 16:03 02/19/23 16:11 Hydromorphone 1 Mg/1ml Inj 1 Mg/Ml Syringe IV 02/19/23 16:04 1 mg STAT ONE Administration Hydromorphone HCl Confirm 02/19/23 16:09 Hydromorphone 1 Mg/1ml Inj 1 Mg/Ml Syringe Administered 02/19/23 16:10 Dose 1 mg .ROUTE .STK-MED ONE Sodium Chloride 1,000 mls @ 999 mls/hr 02/19/23 16:03 02/19/23 16:10 Sodium Chloride 0.9% 1000 Ml IV 02/19/23 17:03 999 mls/hr .Q1H1M STA Administration Sodium Chloride Confirm 02/19/23 16:09 Sodium Chloride 0.9% 1000 Ml Administered 02/19/23 16:10 Dose 1,000 mls @ ud .ROUTE .STK-MED ONE Ketorolac Tromethamine 30 mg 02/19/23 16:03 02/19/23 16:10 Ketorolac Tromethamine 30 Mg/Ml Inj IV 02/19/23 16:04 30 mg STAT ONE Administration Ketorolac Tromethamine Confirm 02/19/23 16:08 Ketorolac Tromethamine 30 Mg/Ml Inj Administered 02/19/23 16:09 Dose 30 mg .ROUTE .STK-MED ONE Ondansetron HCl 4 mg 02/19/23 16:03 02/19/23 16:10 Ondansetron Hcl 4 Mg/2 Ml Vial IV 02/19/23 16:04 4 mg STAT ONE Administration Ondansetron HCl Confirm 02/19/23 16:08 Ondansetron Hcl 4 Mg/2 Ml Vial Administered 02/19/23 16:09 Dose 4 mg .ROUTE .K-MED ONE Lab/Rad Data: Laboratory Result Diagrams 02/19/23 16:05 02/19/23 16:05 Laboratory Results 02/19/23 02/19/23 02/19/23 Range/Units 16:05 16:05 16:05 WBC 8.4 (4.0-10.5) x10^3/uL RBC 4.99 (4.1-5.6) x10^6/uL Hgb 15.0 (12.5-18.0) g/dL Hct 44.3 (42-50) % MCV 88.8 (78-100) fL MCH 30.1 (26-32) pg MCHC 33.9 (32-36) g/dL RDW 13.0 (11.5-14.0) % Plt Count 187 (150-450) x10^3/uL MPV 11.5 H (7.5-11.0) fL Gran % 75.9 H (36.0-66.0) % Immature Gran % (Auto) 0.4 (0.00-0.4) % Nucleat RBC Rel Count 0.0 (0.00-0.1) % Eos # (Auto) 0.02 (0-0.5) x10^3/uL Immature Gran # (Auto) 0.03 (0.00-0.03) x10^3u/L Absolute Lymphs (auto) 1.35 (1.0-4.6) x10^3/uL Absolute Monos (auto) 0.59 (0.0-1.3) x10^3/uL Absolute Nucleated RBC 0.00 (0.00-0.01) x10^3u/L Lymphocytes % 16.1 L (24.0-44.0) % Monocytes % 7.0 (0.0-12.0) % Eosinophils % 0.2 (0.00-5.0) % Basophils % 0.4 (0.0-0.4) % Absolute Granulocytes 6.38 (1.4-6.9) x10^3/uL Basophils # 0.03 (0-0.4) x10^3/uL Sodium 142 (137-145) mmol/L Potassium 4.0 (3.5-5.1) mmol/L Chloride 106 (98-107) mmol/L Carbon Dioxide 26 (22-30) mmol/L Anion Gap 13.2 (5-15) MEQ/L BUN 16 (9-20) mg/dL Creatinine 0.91 (0.66-1.25) mg/dL Estimated GFR > 60.0 ML/MIN Glucose 116 H (74-106) mg/dL Calcium 8.2 L (8.4-10.2) mg/dL Total Bilirubin 0.40 (0.2-1.3) mg/dL AST 35 (17-59) U/L ALT 31 (0-50) U/L Alkaline Phosphatase 79 (38-126) U/L Serum Total Protein 7.2 (6.3-8.2) g/dL Albumin 4.1 (3.5-5.0) g/dL Amylase 76 (30-110) U/L Lipase 63 (23-300) U/L Urine Color Yellow (Yellow) Urine Appearance Clear (Clear) Urine pH 7.5 (4.6-8.0) Ur Specific [place] 1.020 (1.005-1.030) Urine Protein Trace A (Negative) Urine Glucose (UA) Negative (Negative) mg/dL Urine Ketones Negative (Negative) Urine Blood Negative (Negative) Urine Nitrite Negative (Negative) Urine Bilirubin Negative (Negative) Urine Urobilinogen 0.2 (0.2) mg/dL Ur Leukocyte Esterase Negative (Negative) U Hyaline Cast (Auto) NONE SEEN (0-2) /LPF Urine Microscopic RBC 0-2 (0-5) /HPF Urine Microscopic WBC 0-2 (0-5) /HPF Ur Epithelial Cells None Seen (None Seen) /HPF Urine Bacteria None Seen (None Seen) /HPF Urine Culture Reflexed NO (NO) - Progress Progress: improved, pain not gone completely Progress Note: 02/19/23 17:11 CAT scan of the abdomen pelvis without contrast shows no new acute findings on today's study. There are no changes when compared to the CT scan of the abdomen pelvis without contrast from approximately 10 days ago. The appendix is visualized and it is normal. This patient's medical issue is of moderate complexity. The patient's level of complexity and work-up is based on review of the patient's past medical history, review of the patient's recent stay in the emergency department, review of his medication list, review of his drug allergy list, history of present illness and physical findings on examination. The work-up today included placement of an intravenous line, infusion of normal saline solution, infusion of Toradol, infu jd of Dilaudid, infusion of Zofran, obtaining a urinalysis, obtaining CBC, CMP, amylase, lipase and performing a CAT scan of the abdomen pelvis without contrast. The results of the studies show no acute findings. The patient's symptoms have improved. Discharge plan is to have him continue his medication as prescribed and to follow-up with his primary providers for further evaluation and management. Counseled pt/family regarding: lab results, diagnosis, need for follow-up, rad results Medical Desision Making - Independent Historian Additional History obtained from: Spouse - Discussion of managment Reviewed:: Test results Agreed on:: Treatment plan, need for follow-up - Diagnostic Testing Diagnostic test were ordered, analyzed, and reviewed by me: Yes Radiological Interpretation: Reviewed by me - Risk of complications The pt has a mod risk of morbidity or mortality based on: Need for prescription drug management - Departure Departure Disposition: Home Clinical Impression: Flank pain Condition: Stable Critical Care Time: No Referrals: DOCTOR,NO FAMILY [NON-STAFF PHY W/O PRIVILEGES] - Follow up/PCP as directed Additional Instructions: Take your medication as prescribed. Contact your primary care provider's for further evaluation and management.
[2023-02-19] MEDS ORDERED: Sodium Chloride 0.9% 1000 ML 1,000 ML IV STA (16:03)
[2023-02-19] MEDS ORDERED: Hydromorphone 1 mg/ml Injection IV ONE (16:03)
[2023-02-19] MEDS ORDERED: Zofran 4 MG/2 ML VIAL IV ONE (16:03)
[2023-02-19] MEDS ORDERED: TORAdol 30 mg Injection IV ONE (16:03)
[2023-02-19] MEDS ORDERED: Zofran 4 MG/2 ML VIAL ONE (16:08)
[2023-02-19] MEDS ORDERED: TORAdol 30 mg Injection ONE (16:08)
[2023-02-19] MEDS ORDERED: Hydromorphone 1 mg/ml Injection ONE (16:09)
[2023-02-19] MEDS ORDERED: Sodium Chloride 0.9% 1000 ML 1,000 ML ONE (16:09)
[2023-02-19 16:18] LABS: Absolute Neutrophil Ct (ANC) 6.38 x10^3/uL (1.4-6.9); BASOPHIL % 0.4 % (0.0-0.4); Basophil (Absolute #) 0.03 x10^3/uL (0-0.4); Eosinophil % 0.2 % (0.00-5.0); Eosinophil (Absolute #) 0.02 x10^3/uL (0-0.5); Hematocrit 44.3 % (42-50); IMMATURE GRAN # 0.03 x10^3u/L (0.00-0.03); IMMATURE GRAN % 0.4 % (0.00-0.4); Lymphocyte (Absolute #) 1.35 x10^3/uL (1.0-4.6); Lymphocytes % 16.1 % (24.0-44.0); Mean Cell Volume 88.8 fL (78-100); Mean Corpuscular Hemoglobin 30.1 pg (26-32); Mean Corpuscular Hgb Concent. 33.9 g/dL (32-36); Mean Platelet Volume 11.5 fL (7.5-11.0); Monocyte (Absolute #) 0.59 x10^3/uL (0.0-1.3); Neutrophil % 75.9 % (36.0-66.0); Platelet Count 187 x10^3/uL (150-450); Red Blood Count 4.99 x10^6/uL (4.1-5.6); White Blood Count 8.4 x10^3/uL (4.0-10.5)
[2023-02-19 16:32] LABS: ALBUMIN 4.1 g/dL (3.5-5.0); ALKALINE PHOSPHATASE 79 U/L (38-126); AMYLASE 76 U/L (30-110); ANION GAP 13.2 MEQ/L (5-15); BLOOD UREA NITROGEN 16 mg/dL (9-20); CHLORIDE 106 mmol/L (98-107); Calcium 8.2 mg/dL (8.4-10.2); Carbon Dioxide 26 mmol/L (22-30); Creatinine 1 0.91 mg/dL (0.66-1.25); EST GLOMERULAR FILTRATION RATE > 60.0 ML/MIN; Glucose 116 mg/dL (74-106); LIPASE 63 U/L (23-300); SGOT/AST 35 U/L (17-59); SGPT/ALT 31 U/L (0-50); SODIUM 142 mmol/L (137-145); Total Protein 7.2 g/dL (6.3-8.2)
[2023-02-19 16:33] LABS: Appearance Clear (Clear); Bacteria None Seen /HPF (None Seen); Bilirubin Negative (Negative); Blood Negative (Negative); Epithelial Cells None Seen /HPF (None Seen); Glucose, Urine Negative (Negative); Hyaline Casts NONE SEEN /LPF (0-2); Ketones Negative (Negative); Leukocyte Esterase Negative (Negative); Nitrite Negative (Negative); Ph 7.5 (4.6-8.0); Protein,Urine Dip Trace (Negative); RBC 0-2 /HPF (0-5); Urobilinogen 0.2 mg/dL (0.2); WBC 0-2 /HPF (0-5)
[2023-02-19 16:49] LABS: ADD URINE CULTURE? NO (NO)
--- NOTE | 2023-02-19 17:01 | XRAY ---
Indication: Right flank pain. Multiple contiguous axial images obtained through the abdomen and pelvis without contrast using renal stone protocol. Comparison: February 09, 2023 Lung bases again demonstrates dependent atelectasis with stable 7 mm left posterior gutter noncalcified nodule. Heart not enlarged. Stable nonobstructing renal punctate calculus bilaterally. Noncontrasted stomach and bowel loops remain nonobstructed with normal appendix. Scattered descending/sigmoid diverticulosis without diverticulitis. No free fluid/air. Remaining liver, gallbladder, pancreas, spleen, adrenal glands, kidneys, ureters, bladder, and aorta remain unremarkable for noncontrast exam. Impression: No change compared to ER CT abdomen/pelvis 10 days ago. Again nonobstructing bilateral renal punctate calculus, colonic diverticulosis, and benign left lower lobe noncalcified micronodule. No new/acute findings.
[2023-02-19 17:05] VITALS: BP 121/73; PULSE 52; O2SAT 97
== END 2023-02-19 17:32 | disposition home or self-care (01) ==
LOC: ED 15:38
DX: R10.9 Unspecified abdominal pain (principal); R10.31 Right lower quadrant pain; Z28.310 Unvaccinated for COVID-19
CPT/HCPCS: 36000; 36415; 74176; 80053; 81001; 82150; 83690; 85025; 96374; 96375; 99284; J1170; J1885; J2405